=== PATIENT | male | born 2005 | race Caucasian/White ===

== ENCOUNTER 2024-03-09 21:27 | Emergency (ER) | payer OTHER ==
[~2024-03-09] VITALS: Ht 188 cm; Wt 105.0 kg
[2024-03-09 21:29] VITALS: O2SAT 99
[2024-03-09 22:50] LABS: BASOPHILS % 0.3 % (0.0-2.0); EOSINOPHILS % 1.5 % (0.0-5.0); HEMATOCRIT. 40.4 % (42.0-52.0); HEMOGLOBIN. 13.9 g/dL (14.0-18.0); LYMPHOCYTES % 13.6 % (20.0-50.0); MEAN CORPUSCULAR HEMOGLOBIN 30.5 pg (28.0-32.0); MEAN CORPUSCULAR HGB CONC 34.3 g/dL (31.0-37.0); MONOCYTES % 7.2 % (2.0-8.0); NEUTROPHILS % 77.4 % (40.0-76.0); PLATELET 251 x1000/uL (130-400); RED BLOOD CELL COUNT 4.54 mill/uL (4.7-6.1); RED CELL DISTRIBUTION WIDTH 12.5 % (11.6-14.6); WHITE BLOOD COUNT 15.9 x1000/uL (4.5-11.0)
[2024-03-09 22:51] LABS: CHLORIDE 105 mEq/L (98-107); POTASSIUM 3.9 mEq/L (3.5-5.1); SODIUM 139 mEq/L (136-145)
[2024-03-09 22:52] LABS: CALCIUM 9.2 mg/dL (8.7-10.4); CARBON DIOXIDE 28 mEq/L (21-32)
[2024-03-09 22:57] LABS: CREATININE 0.9 mg/dL (0.6-1.3); GLUCOSE 90 mg/dL (70-105); UREA NITROGEN BLOOD 10 mg/dL (9-23)
[2024-03-09 22:59] LABS: TROPONIN I HIGH SENSITIVITY 18 ng/L (3.0-53)
[2024-03-09] MEDS: SODIUM CHLORIDE 0.9% 1,000 ML IV ONE (23:00)
[2024-03-10 01:10] LABS: TROPONIN I HIGH SENSITIVITY 31 ng/L (3.0-53)
[2024-03-10 04:17] VITALS: BP 97/60; PULSE 60; RESP 17; TEMP 36.55848; O2SAT 99
== END 2024-03-10 04:36 | disposition short-term general hospital (02) ==
LOC: ER 21:27 → CANBEDREQ 03-10 00:25 → ER 03-10 04:36
DX: R55 Syncope and collapse (principal); R42 Dizziness and giddiness; E05.90 Thyrotoxicosis, unspecified without thyrotoxic crisis or storm
CPT/HCPCS: 99285; 71045; 80048; 85025; 84484 ×2; 36415; 93005; J7030